=== PATIENT | female | born 1980 | race Caucasian/White ===

== ENCOUNTER 2017-05-02 08:29 | Emergency (ER) | payer MEDICAID, OTHER ==
[2017-05-02 10:02] LABS: URINE BLOOD (Dip) POC Negative (NEGATIVE); URINE GLUCOSE (Dip) POC Negative (NEGATIVE); URINE KETONES (Dip) POC Trace (NEGATIVE); URINE LEUKOCYTE EST (Dip) POC Trace (NEGATIVE); URINE NITRITE (Dip) POC Negative (NEGATIVE); URINE TOTAL PROTEIN POC 1+ (NEGATIVE)
[2017-05-02] MEDS: HYDROCODONE/APAP (5/325) TAB PO (10:03)
== END 2017-05-02 10:51 | disposition home or self-care (01) ==
LOC: FTE 08:29
DX: J02.9 Acute pharyngitis, unspecified (principal); R05 Cough; R50.9 Fever, unspecified; R42 Dizziness and giddiness; J45.909 Unspecified asthma, uncomplicated
CPT/HCPCS: 81003; 99284

== ENCOUNTER 2017-11-13 10:40 | Emergency (ER) | payer MEDICAID, OTHER ==
[2017-11-13] MEDS: IBUPROFEN 800 MG TAB PO (11:14)
== END 2017-11-13 12:36 | disposition home or self-care (01) ==
LOC: FTE 10:40
DX: S99.921A Unspecified injury of right foot, initial encounter (principal); J45.909 Unspecified asthma, uncomplicated; W22.8XXA Striking against or struck by other objects, initial encounter; Y92.9 Unspecified place or not applicable
CPT/HCPCS: 73660; 99283-25

== ENCOUNTER 2018-07-21 19:00 | Emergency (ER) | payer SELFPAY, OTHER ==
[2018-07-21] MEDS: METHYLPREDNISOLONE 125 MG INJ IM (21:37)
[2018-07-21] MEDS: IPRATROPIUM (NEB) 0.5 MG/2.5 ML AMP HHN (22:04)
[2018-07-21] MEDS: ALBUTEROL 0.083% (NEB) 2.5 MG/3 ML AMP HHN (22:05)
== END 2018-07-21 22:54 | disposition home or self-care (01) ==
LOC: FTE 22:54
DX: J45.901 Unspecified asthma with (acute) exacerbation (principal); J03.90 Acute tonsillitis, unspecified; Z85.841 Personal history of malignant neoplasm of brain
CPT/HCPCS: 71046; 81025; 94664; 96372; 99284-25